=== PATIENT | female | born 1990 | race Caucasian/White ===

== ENCOUNTER → 2017-07-16 | Outpatient (CLI) | payer OTHER | LOC: HPND 08:56 | PROVIDERS: ATTEND Family Medicine | DX: Z36.3 Encounter for antenatal screening for malformations (principal) | CPT/HCPCS: 76805 ==

== ENCOUNTER → 2017-08-27 | Outpatient (CLI) | payer OTHER | LOC: HPND 07:54 | PROVIDERS: ATTEND Family Medicine | DX: O44.42 Low lying placenta NOS or without hemorrhage, second trimester (principal); Z36.2 Encounter for other antenatal screening follow-up | CPT/HCPCS: 76816 ==

== ENCOUNTER 2017-09-05 04:57 | Emergency (ER) | payer OTHER ==
--- NOTE | 2017-09-05 06:42 | PD ---
HPI Chief Complaint Nausea vomiting, back pain, leakage of fluid 6 hours Date Seen: Sep 05, 2017 Travel History International Travel<30 Days: No Contact w/Intl Traveler<30Days: No Known Affected Area: No History of Present Illness HPI 27-year-old female, 25 weeks and 6 days, presents with nausea/vomiting, lower back and lower abdominal pain, and leakage of fluid overnight. Patient states that she has been having lower back pain over the last couple of weeks and she did not have that in the previous . They have been doing back massages with no alleviation of the pain. The nausea/vomiting is new and occurred suddenly overnight. She has also felt some increased leakage of fluid over the night. While waiting in triage the patient's nausea/vomiting and pain have all resolved and she is sleeping comfortably at a 1-2 out of 10 pain. Leakage of fluid has been testing with amnio sure by nursing staff and is negative. She denies any pelvic pain or vaginal irritation, burning, or pain with urination. Weeks Gestation: 25 Para: 2 : 1 Miscarriage: 0 : 0 History Past Medical History Narrative Medical Chronic anemia Recent yeast infection/UTI, treatment completed History of pyelonephritis Low-lying placenta on ultrasound Medical History: Denies Significant Hx Obstetric History Obstetric History This Late care with first visit in second trimester, at 18 weeks gestation Low-lying placenta on ultrasound Iron deficiency anemia Previous 1, no complications Family History Family History: Negative Social History Alcohol Use: No Tobacco Use: No Substance Abuse: No Allergies-Medications (Allergen,Severity, Reaction): Coded Allergies: nickel (Verified Allergy, Unknown, 09/05/17) Home Meds Active Scripts Promethazine (Phenergan) 25 Mg Tablet, 25 MG PO Q6H Y for NAUSEA OR VOMITING, # 30 TAB 0 Refills Prov:John Manuel MD R2 09/05/17 Narrative Medication PNV Fe 325 Vit C 500 s/p Miconazole vaginal cream x 6 days and Niro 100mg BID x 7 days Review of Systems ROS Limitations: Clinical Condition General / Constitutional: No: Fever Eyes: No: Visual changes HENT: No: Lightheadedness Cardiovascular: No: Syncope Respiratory: No: Wheezing Genitourinary: No: Urgency, Frequency Musculoskeletal: No: Edema Skin: No Lesions Neurologic: No: Syncope Psychiatric: No: Depression Endocrine: No: Polyuria Physical Exam Exam Limitations: Clinical Condition GENERAL: No acute distress, sleeping comfortably at time of exam SKIN: Warm and dry. HEAD: Normocephalic. EYES: No scleral icterus. No injection or drainage. NECK: Supple, trachea midline. No JVD or lymphadenopathy. CARDIOVASCULAR: Regular rate and rhythm without murmurs, gallops, or rubs. RESPIRATORY: Breath sounds equal bilaterally. No accessory muscle use. GASTROINTESTINAL: Abdomen soft, non-tender, nondistended. Pain cannot be re- created on palpation MUSCULOSKELETAL: No cyanosis, or edema. BACK: Nontender without obvious deformity. No CVA tenderness. Pelvic: closed, thick, and floating, exam done by Narrative Data Data Vital Signs Reviewed: Yes Orders Orders Complete Blood Count With Diff (09/05/17 06:39) Comprehensive Metabolic Panel (09/05/17 06:39) Urinalysis - C+S If Indicated (09/05/17 06:39) Us Kidney/Renal/Bladder (09/05/17 ) MDM Medical Record Reviewed: Yes Interpretation(s) Pain likely from hydronephrosis vs. biliary colic vs. musculoskeletal R/O labor Tracing category 1, reactive, no decelerations No contractions on monitor Amniosure negative Exam: C/th/f R/O nephrolithiasis - See U/S below - Regardless should pass spontaneously - May add Tamsulosin (Category B) if diagnosed and necessary R/O pyelo CBC: WNL UA: negative leuk est, negative nitrites CMP: LFTS N renal ultrasound: bilateral hydronephrosis, gallstones visualized Proteinurea - BP WNL -LFTS N - f/u in office Narrative Course / MDM Pt Cat 1 tracing Pt given Fentanyl IV for pain Plan D/C with phenergan PRN for N/V D/C with rec of tylenol for pain D/C with f/u with PCP (myself) in 1 week Will do gall bladder ultrasound [id number] to monitor for cholecystitis/ choledocholithiasis Diagnosis Diagnosis: Primary Impression: 25 weeks gestation of Additional Impression: Cholelithiases Disposition: 01 DISCHARGE HOME Condition: Good Scripts Promethazine (Phenergan) 25 Mg Tablet 25 MG PO Q6H Y for NAUSEA OR VOMITING, #30 TAB 0 Refills Prov: John Manuel MD R2 09/05/17 Referrals: Liz Aden MD R2 Patient Instructions: Abdominal Pain in (ED), General Instructions, Narcotic given in the ED, Nausea and Vomiting in (ED) Liz Aden MD R2 Sep 05, 2017 06:42
[2017-09-05 07:05] LABS: AUTOMATED NEUTROPHIL # 12.4 TH/MM3 (1.8-7.7); BASOPHIL # 0.1 TH/MM3 (0-0.2); BASOPHIL % 0.4 % (0.0-2.0); HEMATOCRIT 32.3 % (35.0-46.0); HEMOGLOBIN 11.1 GM/DL (11.6-15.3); LYMPH % 8.3 % (9.0-44.0); LYMPHOCYTE # 1.2 TH/MM3 (1.0-4.8); MEAN CELL VOLUME 83.8 FL (80.0-100.0); MEAN CORPUSCULAR HEMOGLOBIN 28.7 PG (27.0-34.0); MEAN CORPUSCULAR HGB CONC 34.3 % (32.0-36.0); MEAN PLATELET VOLUME 7.5 FL (7.0-11.0); MONO % 2.2 % (0.0-8.0); MONOCYTE # 0.3 TH/MM3 (0-0.9); NEUT % 89.1 % (16.0-70.0); PLATELET COUNT 278 TH/MM3 (150-450); RED BLOOD COUNT 3.85 MIL/MM3 (4.00-5.30); RED CELL DISTRIBUTION WIDTH 13.4 % (11.6-17.2)
[2017-09-05 07:17] LABS: AMORPHOUS SEDIMENT, URINE FEW; BACTERIA, URINE OCC /hpf; BILIRUBIN, URINE NEG (NEG); BLOOD, URINE NEG (NEG); GLUCOSE,URINE TRACE mg/dL (NEG); KETONE, URINE NEG (NEG); MUCUS URINE MOD /lpf (OCC); NITRITE,URINE NEG (NEG); SQUAMOUS EPITHELIAL CELL URINE 3 /hpf (0-5); URINE COLOR YELLOW (YELLW/STRAW); URINE LEUKOCYTE ESTERASE MOD (NEG)
[2017-09-05 07:27] LABS: ALBUMIN 2.8 GM/DL (3.4-5.0); AST (GOT) 15 U/L (15-37); BICARBONATE 21.6 MEQ/L (21.0-32.0); BLOOD UREA NITROGEN 13 MG/DL (7-18); CALCIUM 8.3 MG/DL (8.5-10.1); CHLORIDE 106 MEQ/L (98-107); CREATININE 0.43 MG/DL (0.50-1.00); GLOMERULAR FILTRATION RATE 177 ML/MIN (>89); GLUCOSE,RANDOM 104 MG/DL (74-106); SODIUM (NA) 139 MEQ/L (136-145)
[2017-09-05 07:28] LABS: ALT (GPT) 22 U/L (10-53)
[2017-09-05 07:30] LABS: ALKALINE PHOSPHATASE 59 U/L (45-117); TOTAL BILIRUBIN ADULT 0.2 MG/DL (0.2-1.0); TOTAL PROTEIN 6.9 GM/DL (6.4-8.2)
[2017-09-05] MEDS ORDERED: PROM25TA10 PO (09:28)
--- NOTE | 2017-09-05 09:30 | RADRPT ---
EXAM DATE/TIME: 09/05/2017 08:37 [place] COMPARISON: No previous studies available for comparison. INDICATIONS : Flank pain. MEDICAL HISTORY : Flank pain. SURGICAL HISTORY : None. ENCOUNTER: Initial ACUITY: 1 day PAIN SCORE: 3/10 LOCATION: Bilateral flank MEASUREMENTS: RIGHT KIDNEY: 13.1 x 5.9 x 5.2 cm LEFT KIDNEY: 11.4 x 4.8 x 4.0 cm FINDINGS: RIGHT KIDNEY: Normal in size, shape and echogenicity. There is mild dilatation of renal pelvis with no solid mass o r calculi. LEFT KIDNEY: Normal in size, shape and echogenicity. There is mild dilatation renal pelvis with no solid mass or c alculi. BLADDER: Within normal limits given the degree of distension. Multiple gallstones were incidentally noted. CONCLUSION: 1. Mild dilatation of both renal pelvises which may represent mild pyelocaliectasis in this p atient. 2. Cholelithiasis. Leonard Liang MD on September 05, 2017 at 9:20 Board Certified Radiologist. This report was verified electronically.
== END 2017-09-05 10:09 | disposition home or self-care (01) ==
LOC: HOBED 04:57
DX: O99.612 Diseases of the digestive system complicating pregnancy, second trimester (principal); K80.20 Calculus of gallbladder without cholecystitis without obstruction; R82.99 Other abnormal findings in urine; Z3A.25 25 weeks gestation of pregnancy
CPT/HCPCS: 76775; 80053; 81001; 84112; 85025; 87086; 96374; 99284; J3010

== ENCOUNTER 2017-12-15 12:45 | Inpatient (IN) ==
[2017-12-15] MEDS ORDERED: Naloxone Inj 0.4 MG/ML Vial IV.PUSH PRN ×2 (13:32→19:32)
[2017-12-15] MEDS ORDERED: Oxytocin 30 Units/500ml Premix 30 UNITS/500 ML BAG IV.SIG ONE (13:32)
[2017-12-15] MEDS ORDERED: Sodium Chlor 0.9% Inj 500 ML IV.SIG PRN (13:32)
[2017-12-15] MEDS ORDERED: Sod Chloride 0.9% Inj 1,000 ML IV.CONT PRN (13:32)
[2017-12-15] MEDS ORDERED: fentaNYL Citrate Inj 100 MCG/2 ML Ampul IV.PUSH PRN ×2 (13:32)
[2017-12-15] MEDS ORDERED: Citric Acid/Sodium Citrate Liq 30 ML UDC PO SCH (13:45)
--- NOTE | 2017-12-15 13:51 | ED ---
History of Present Illness Primary Care Physician: No Primary Care Physician PCP Dr. Aden, PGY-3, FM residency Chief Complaint: cxns History of Present Illness: , at 40 weeks 2 days gestation, presents for contractions since 7 AM this morning. Contractions have been regular and every 5 minutes. She has had some small amounts of leakage of fluid, but no gushes of fluid. She has had some bloody streaks in her discharge. No large amounts of vaginal bleeding. Positive movement. 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 This includes certification that hospital inpatient services are reasonable and necessary and in the case of services not specified as inpatient-only under 42 CFR 419.22(n), that they are appropriately provided as inpatient services in accordance to with the 2-midnight benchmark under 43 CFR 412.3(e) Estimated Total Length of Stay (Days): 3 Plans for Post Hospital Care: Home Review of Systems All other systems reviewed negative except as stated in HPI PMFSH - History History Provided By: Patient - Medical / Surgical Hx Neg / Unobtainable Medical Problems Denied: Yes - Tobacco History Second Hand Smoke Exposure: No Tobacco Use In Past 30 Days: No Smoking Status: Never smoker - Alcohol History How Often Do You Have a Drink Containing Alcohol: Never - Substance Use History Substance History: No History of Abuse - Travel History History of Recent Travel: No Recent Travel in the [place] Within the Last 8 Weeks: No Recent Travel Out of the Country Within the Last 8 Weeks: No Medications and Allergies Allergies Allergy/AdvReac Type Severity Reaction Status Date / Time nickel Allergy Unknown chest rash Verified 12/15/17 13:21 Home Medications Medication Instructions Recorded Confirmed Type ferrous sulfate [iron] 325 mg PO DAILY 12/15/17 12/15/17 History [id number] acid 1 tab PO 12/15/17 History [PreNata] Active Medications: Active Medications Citric Acid/Sodium Citrate (Sodium Citrate/Citric Acid Liq) 30 ml PO [employer] [facility] Stop: 12/19/17 13:44 Fentanyl Citrate (Fentanyl Inj) 50 mcg IV.PUSH Q1H PRN PRN Reason: Pain Scale 3 - 5 Fentanyl Citrate (Fentanyl Inj) 100 mcg IV.PUSH Q1H PRN PRN Reason: PAIN SCALE 6 TO 10 Lactated Ringer's (Lr 1000 Ml Inj) 1,000 mls @ 125 mls/hr IV.CONT .Q8H WU Lactated Ringer's (Lr 1000 Ml Inj) 1,000 mls @ 3,000 mls/hr IV.SIG UNSCH PRN PRN Reason: compromise or epidural Sodium Chloride (Ns Inj) 500 mls @ 1,000 mls/hr IV.SIG UNSCH PRN PRN Reason: SEE LABEL COMMENTS Sodium Chloride (Ns Inj) 1,000 mls @ 100 mls/hr IV.CONT .Q10H PRN PRN Reason: SEE LABEL COMMENTS Oxytocin (Pitocin 30 Units/Ns 500 Ml Premix) 30 units in 500 mls @ 999 mls/hr IV.SIG BOLUS ONE Stop: 12/15/17 14:02 Lidocaine HCl (Xylocaine 1% Inj) 0.1 ml I-DERMAL PRN PRN PRN Reason: For IV start Stop: 12/18/17 13:31 Lidocaine HCl (Xylocaine 1% Inj) 10 ml INFILTRATN PRN PRN PRN Reason: For episiotomy repair Stop: 12/17/17 13:31 Mineral Oil (Muri-Lube Oil) 10 ml TOPICAL PRN PRN PRN Reason: PRN perineal massage Naloxone HCl (Narcan Inj) 0.1 mg IV.PUSH Q2M PRN PRN Reason: for opiate reversal Ondansetron HCl (Zofran Inj) 4 mg IV.PUSH Q6H PRN PRN Reason: NAUSEA OR VOMITING Exam Vital signs: Vital Signs 12/15/17 13:02 Temperature 97.7 F Pulse Rate 86 Respiratory Rate 18 Blood Pressure 108/58 L Intake & Output 12/14/17 12/15/17 12/15/17 18:59 06:59 18:59 Weight 74.389 kg Narrative: heart tracing: Category 1 tracing, positive accelerations, no decelerations, baseline 140 Contractions q. 2 minutes, regular Sterile vaginal exam: 3-4 cm/90/-2, bulging Amniosure negative GENERAL: Well-nourished, well-developed patient. SKIN: Warm and dry. HEAD: Normocephalic and atraumatic. EYES: No scleral icterus. No injection or drainage. ENT: Mucous membranes pink. Airway patent. NECK: Supple, trachea midline. CARDIOVASCULAR: Regular rate and rhythm without murmurs, gallops, or rubs. RESPIRATORY: Breath sounds equal bilaterally. No accessory muscle use. BREASTS: Deferred ABDOMEN/GI: Abdomen soft, non-tender, bowel sounds present, no rebound, no guarding Gravid GENITOURINARY: as above EXTREMITIES: No cyanosis or edema. BACK: Nontender without obvious deformity. NEUROLOGICAL: Awake and alert. Motor and sensory grossly within normal limits. Five out of 5 muscle strength in all muscle groups. Normal speech. Results - Labs CBC & Chem 7: 12/15/17 13:44 Assessment and Plan - Diagnosis (1) Code(s): Z34.90 - Encounter for supervision of normal , unspecified, unspecified trimester Status: Acute Qualifiers: Weeks of gestation: 40 weeks Qualified Code(s): Z3A.40 - 40 weeks gestation of Plan: , 40 weeks 2 days gestation, presents in labor. -Admit for epidural -We will reexamine cervix following epidural, amniosure negative -Continue regular labor care -GBS negative -Category 1 tracing - Attending Attestation I personally saw and evaluated patient and participate in all mendoza decision making. Admit for labor at term. [facility] Discharge Plan - Discharge Order Discharge Orders: Discharge Order (Routine); Ordered 12/17/17 Ordered By: Mikie Davis - Physicians Team Primary Care Provider: Primary Care Jermaine,Elodia Attending Provider: Jessi Gomez
[2017-12-15 14:04] LABS: Baso % (Auto) 0.5 % (0.0-2.0); Eos # (Auto) 0.1 th/mm3 (0.0-0.4); Eos % (Auto) 0.5 % (0.0-4.0); Hematocrit 38.5 % (35.0-46.0); Hemoglobin 13.3 gm/dL (11.6-15.3); Lymph # (Auto) 1.8 th/mm3 (1.0-4.8); Lymph % (Auto) 16.9 % (9.0-44.0); Mean Corpuscular HGB Conc 34.5 % (32.0-36.0); Mean Corpuscular Hemoglobin 28.7 pg (27.0-34.0); Mean Platelet Volume 7.3 fL (7.0-11.0); Mono # (Auto) 0.6 th/mm3 (0.0-0.9); Mono % (Auto) 6.2 % (0.0-8.0); Neut % (Auto) 75.9 % (16.0-70.0); Platelet Count 253 th/mm3 (150-450); Red Blood Count 4.63 mil/mm3 (4.00-5.30); Red Cell Distribution Width 14.2 % (11.6-17.2); White Blood Count 10.5 th/mm3 (4.0-11.0)
[2017-12-15] MEDS ORDERED: fentaNYL 2MCG-Bupiv 0.125% Epi 150 ML EPIDURAL ONE (14:16)
--- NOTE | 2017-12-15 14:19 | P.HPOB ---
, at 40 weeks 2 days gestation, presents for contractions since 7 AM this morning. Contractions have been regular and every 5 minutes. She has had some small amounts of leakage of fluid, but no gushes of fluid. She has had some bloody streaks in her discharge. No large amounts of vaginal bleeding. Positive movement. 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 This includes certification that hospital inpatient services are reasonable and necessary and in the case of services not specified as inpatient-only under 42 CFR 419.22(n), that they are appropriately provided as inpatient services in accordance to with the 2-midnight benchmark under 43 CFR 412.3(e) Estimated Total Length of Stay (Days): 3 Plans for Post Hospital Care: Home Review of Systems All other systems reviewed negative except as stated in HPI PMFSH - History History Provided By: Patient - Medical / Surgical Hx Neg / Unobtainable Medical Problems Denied: Yes - Tobacco History Second Hand Smoke Exposure: No Tobacco Use In Past 30 Days: No Smoking Status: Never smoker - Alcohol History How Often Do You Have a Drink Containing Alcohol: Never - Substance Use History Substance History: No History of Abuse - Travel History History of Recent Travel: No Recent Travel in the [place] Within the Last 8 Weeks: No Recent Travel Out of the Country Within the Last 8 Weeks: No Medications and Allergies Active Medications: Active Medications Citric Acid/Sodium Citrate (Sodium Citrate/Citric Acid Liq) 30 ml PO [employer] [facility] Stop: 12/19/17 13:44 Fentanyl Citrate (Fentanyl Inj) 50 mcg IV.PUSH Q1H PRN PRN Reason: Pain Scale 3 - 5 Fentanyl Citrate (Fentanyl Inj) 100 mcg IV.PUSH Q1H PRN PRN Reason: PAIN SCALE 6 TO 10 Lactated Ringer's (Lr 1000 Ml Inj) 1,000 mls @ 125 mls/hr IV.CONT .Q8H [facility] Lactated Ringer's (Lr 1000 Ml Inj) 1,000 mls @ 3,000 mls/hr IV.SIG UNSCH PRN PRN Reason: compromise or epidural Sodium Chloride (Ns Inj) 500 mls @ 1,000 mls/hr IV.SIG UNSCH PRN PRN Reason: SEE LABEL COMMENTS Sodium Chloride (Ns Inj) 1,000 mls @ 100 mls/hr IV.CONT .Q10H PRN PRN Reason: SEE LABEL COMMENTS Oxytocin (Pitocin 30 Units/Ns 500 Ml Premix) 30 units in 500 mls @ 999 mls/hr IV.SIG BOLUS ONE Stop: 12/15/17 14:02 Lidocaine HCl (Xylocaine 1% Inj) 0.1 ml I-DERMAL PRN PRN PRN Reason: For IV start Stop: 12/18/17 13:31 Lidocaine HCl (Xylocaine 1% Inj) 10 ml INFILTRATN PRN PRN PRN Reason: For episiotomy repair Stop: 12/17/17 13:31 Mineral Oil (Muri-Lube Oil) 10 ml TOPICAL PRN PRN PRN Reason: PRN perineal massage Naloxone HCl (Narcan Inj) 0.1 mg IV.PUSH Q2M PRN PRN Reason: for opiate reversal Ondansetron HCl (Zofran Inj) 4 mg IV.PUSH Q6H PRN PRN Reason: NAUSEA OR VOMITING Allergies Allergy/AdvReac Type Severity Reaction Status Date / Time nickel Allergy Unknown chest rash Verified 12/15/17 13:21 Home Medications Medication Instructions Recorded Confirmed Type ferrous sulfate [iron] 325 mg PO DAILY 12/15/17 12/15/17 History [id number] acid 1 tab PO 12/15/17 History [PreNata] Exam Vital signs: Vital Signs 12/15/17 13:02 Temperature 97.7 F Pulse Rate 86 Respiratory Rate 18 Blood Pressure 108/58 L Intake & Output 12/14/17 12/15/17 12/15/17 18:59 06:59 18:59 Weight 74.389 kg Narrative: GENERAL: Well-nourished, well-developed patient. SKIN: Warm and dry. HEAD: Normocephalic and atraumatic. EYES: No scleral icterus. No injection or drainage. ENT: No nasal drainage noted. Mucous membranes pink. Airway patent. NECK: Supple, trachea midline. No JVD. CARDIOVASCULAR: Regular rate and rhythm without murmurs, gallops, or rubs. RESPIRATORY: Breath sounds equal bilaterally. No accessory muscle use. ABDOMEN/GI: Abdomen soft, non-tender, bowel sounds present, no rebound, no guarding heart tracing: Category 1 tracing, positive accelerations, no decelerations, baseline 140 Contractions q. 2 minutes, regular Sterile vaginal exam: 3-4 cm/90/-2, bulging Amniosure negative EXTREMITIES: No cyanosis or edema. BACK: Nontender without obvious deformity. No CVA tenderness. NEUROLOGICAL: Awake and alert. Motor and sensory grossly within normal limits. Five out of 5 muscle strength in all muscle groups. Normal speech. Assessment and Plan - Diagnosis (1) Code(s): Z34.90 - Encounter for supervision of normal , unspecified, unspecified trimester Status: Acute Plan: , 40 weeks 2 days gestation, presents in labor. -Admit for epidural -We will reexamine cervix following epidural, amniosure negative -Continue regular labor care -GBS negative -Category 1 tracing
[2017-12-15 14:32] LABS: Bilirubin,Urine Negative (Negative); Clarity,Urine Clear (Clear); Color,Urine Yellow (Yellw/Straw); Glucose,Urine (UA) Negative (Negative); Leukocyte Esterase,Urine Negative (Negative); Mucus,Urine Few /lpf (Occasional); Nitrite,Urine Negative (Negative); Specific Gravity,Urine 1.015 (1.002-1.035); Squamous Epithelial Cell,Urine 2 /hpf (0-5)
[2017-12-15] MEDS ORDERED: fentaNYL Citrate Inj 100 MCG/2 ML Ampul EPIDURAL ONE (15:19)
[2017-12-15] MEDS ORDERED: fentaNYL 2MCG-Bupiv 0.125% Epi 150 ML EPIDURAL PRN (15:19)
--- NOTE | 2017-12-15 15:32 | P.PN ---
Subjective Interval history: OBHG Attending The patient was seen and counseled regarding labor and the goal of a healthy and healthy mother. We discussed the goal of a vaginal delivery. We discussed the risks and medical indications of a delivery. The patient is in agreement with if clinically indicated. FHR reassuring. Patient comfortable with epidural. Physical Exam Vital signs: Vital Signs 12/15/17 13:02 12/15/17 14:00 12/15/17 14:30 Temperature 97.7 F Pulse Rate 86 Respiratory Rate 18 19 18 Blood Pressure 108/58 L 12/15/17 14:40 12/15/17 15:02 12/15/17 15:05 Temperature Pulse Rate 87 73 74 Respiratory Rate 18 Blood Pressure 117/77 114/67 104/68 12/15/17 15:08 12/15/17 15:10 12/15/17 15:25 Temperature Pulse Rate 76 Respiratory Rate 17 18 Blood Pressure 107/65 Intake & Output 12/14/17 12/15/17 12/15/17 18:59 06:59 18:59 Weight 74.389 kg Results - Labs CBC & Chem 7: 12/15/17 13:44 Laboratory Results - last 24 hr 12/15/17 12/15/17 12/15/17 13:05 13:44 13:44 WBC 10.5 RBC 4.63 Hgb 13.3 Hct 38.5 MCV 83.0 MCH 28.7 MCHC 34.5 RDW 14.2 Plt Count 253 MPV 7.3 Neut % (Auto) 75.9 H Lymph % (Auto) 16.9 [place] % (Auto) 6.2 Eos % (Auto) 0.5 Baso % (Auto) 0.5 Neut # (Auto) 8.0 H Lymph # (Auto) 1.8 [place] # (Auto) 0.6 Eos # (Auto) 0.1 Baso # (Auto) 0.0 WBC Differential . Differential Comment Auto diff final Urine Color Yellow Urine Clarity Clear Urine pH 7.0 Ur Specific [place] 1.015 Urine Protein Negative Urine Glucose (UA) Negative Urine Ketones Negative Urine Occult Blood Small H Urine Nitrate Negative Urine Bilirubin Negative Urine Urobilinogen Less than 2 Ur Leukocyte Esterase Negative Urine RBC 1 Urine WBC 1 Ur Squamous Epith Cells 2 Urine Mucus Few H Micro UA Comment Culture not ind Urine Culture Comments Culture not ind Blood Type O Positive Blood Type Recheck Required
[2017-12-15] MEDS ORDERED: Diphtheria/Tetanus/Pertussis Vaccine Inj 0.5 ML Syringe IM ONE (16:00)
[2017-12-15] MEDS ORDERED: Measles/Mumps/Rubella Vaccine Inj 0.5 ML Vial SQ ONE (16:00)
[2017-12-15] MEDS ORDERED: miSOPROStol 200 MCG Tablet ONE (19:02)
--- NOTE | 2017-12-15 19:12 | P.PN ---
Subjective Interval history: Came to patient's room to personally assess vaginal exam. heart tones were reassuring. SROM of meconium fluid during SVE. SVE /-2. Following SROM patient had some decreased heart tones as the fetus was repositioning however return to baseline with moderate long-term variability, good accelerations, and no further decelerations of note. Upon arrival of the resident patient commence spontaneous maternal expulsive efforts with atraumatic delivery of the head in the OP presentation. head was rotated and anterior shoulder delivered spontaneously and atraumatically, followed by spontaneous and atraumatic delivery of the remainder of the . The was placed on the maternal abdomen and became vigorous with stimulation. The cord was doubly clamped and cut after 45 second delay. Cord blood was obtained for the nursery and the placenta delivered spontaneously. The placenta appeared to be intact. A small laceration was noted of the vagina and perineum which was repaired in the typical fashion by the resident. I was present for the entire procedure. Mother and baby are both doing well. Physical Exam Vital signs: Vital Signs 12/15/17 13:02 12/15/17 14:00 12/15/17 14:30 Temperature 97.7 F Pulse Rate 86 Respiratory Rate 18 19 18 Blood Pressure 108/58 L 12/15/17 14:40 12/15/17 15:02 12/15/17 15:05 Temperature Pulse Rate 87 73 74 Respiratory Rate 18 Blood Pressure 117/77 114/67 104/68 12/15/17 15:08 12/15/17 15:10 12/15/17 15:25 Temperature Pulse Rate 76 74 Respiratory Rate 17 18 Blood Pressure 107/65 12/15/17 15:30 12/15/17 15:35 12/15/17 15:40 Temperature Pulse Rate 78 75 79 Respiratory Rate Blood Pressure 109/69 12/15/17 15:50 12/15/17 15:55 12/15/17 16:01 Temperature Pulse Rate 73 75 81 Respiratory Rate 18 Blood Pressure 122/74 123/67 12/15/17 16:05 12/15/17 16:10 12/15/17 16:15 Temperature Pulse Rate 79 75 80 Respiratory Rate Blood Pressure 12/15/17 16:20 12/15/17 16:35 12/15/17 17:00 Temperature 98.2 F Pulse Rate 80 83 77 Respiratory Rate 17 Blood Pressure 110/67 108/56 L 110/67 12/15/17 17:30 12/15/17 17:45 12/15/17 18:01 Temperature Pulse Rate 91 H 81 94 H Respiratory Rate 18 Blood Pressure 96/59 L 106/73 102/77 Intake & Output 12/15/17 12/15/17 12/16/17 06:59 18:59 06:59 Weight 74.389 kg Results - Labs CBC & Chem 7: 12/15/17 13:44 Laboratory Results - last 24 hr 12/15/17 12/15/17 12/15/17 13:05 13:44 13:44 WBC 10.5 RBC 4.63 Hgb 13.3 Hct 38.5 MCV 83.0 MCH 28.7 MCHC 34.5 RDW 14.2 Plt Count 253 MPV 7.3 Neut % (Auto) 75.9 H Lymph % (Auto) 16.9 [place] % (Auto) 6.2 Eos % (Auto) 0.5 Baso % (Auto) 0.5 Neut # (Auto) 8.0 H Lymph # (Auto) 1.8 [place] # (Auto) 0.6 Eos # (Auto) 0.1 Baso # (Auto) 0.0 WBC Differential . Differential Comment Auto diff final Urine Color Yellow Urine Clarity Clear Urine pH 7.0 Ur Specific [place] 1.015 Urine Protein Negative Urine Glucose (UA) Negative Urine Ketones Negative Urine Occult Blood Small H Urine Nitrate Negative Urine Bilirubin Negative Urine Urobilinogen Less than 2 Ur Leukocyte Esterase Negative Urine RBC 1 Urine WBC 1 Ur Squamous Epith Cells 2 Urine Mucus Few H Micro UA Comment Culture not ind Urine Culture Comments Culture not ind Blood Type O Positive Blood Type Recheck Required
[2017-12-15] MEDS ORDERED: Bisacodyl 10 MG Supp RECTAL PRN (19:32)
[2017-12-15] MEDS ORDERED: Benzocaine 20% Top Spray 60 ML Can TOPICAL PRN (19:32)
[2017-12-15] MEDS ORDERED: Witch Hazel 50%/Glyderin 12.5% 40 Pad Jar RECTAL PRN (19:32)
[2017-12-15] MEDS ORDERED: Acetaminophen 325 MG Tablet PO PRN (19:32)
[2017-12-15] MEDS ORDERED: Zolpidem Tartrate 5 MG Tablet PO PRN (19:32)
--- NOTE | 2017-12-15 19:35 | P.OBDELI ---
Weeks Gestation: 40 Patient Started Active Labor: Yes Active Labor Start Date: 12/15/17 Active Labor Start Time: 07:00 Medical Induction of Labor: No Artificial Rupture of Membrane: No Anesthesia: Epidural Episiotomy: none Vaginal Delivery: Normal Presentation: Occiput posterior Nuchal Cord: x1 (body cord) Delayed Cord Clamping (45 sec): Yes Placenta: Spontaneous delivery, Intact Laceration: 2 deg Repair: Chromic running (3.0 chromic running) Infant: Female
[2017-12-15] MEDS ORDERED: Oxytocin 30 Units/500ml Premix 30 UNITS/500 ML BAG IV.CONT SCH (19:45)
[2017-12-15 20:02] LABS: Amphetamine Urine With Conf Neg (Neg); Benzodiazepine Urine With Conf Neg (Neg)
[2017-12-15] MEDS ORDERED: Senna/Docusate Sodium 8.6/50 MG Tablet PO SCH (21:00)
--- NOTE | 2017-12-16 07:59 | P.PNOB ---
Subjective Post day: 1 Interval history: Pt seen and examined bedside this AM. Eating and drinking without difficulty. Ambulating without difficulty. No abnormal vaginal bleeding, "period amount" per patient. Denies any CP/SOB/dizzyness. Objective Vital Signs/I&O: Vital Signs 12/15/17 13:02 12/15/17 14:00 12/15/17 14:30 Temperature 97.7 F Pulse Rate 86 Respiratory Rate 18 19 18 Blood Pressure 108/58 L 12/15/17 14:40 12/15/17 15:02 12/15/17 15:05 Temperature Pulse Rate 87 73 74 Respiratory Rate 18 Blood Pressure 117/77 114/67 104/68 12/15/17 15:08 12/15/17 15:10 12/15/17 15:25 Temperature Pulse Rate 76 74 Respiratory Rate 17 18 Blood Pressure 107/65 12/15/17 15:30 12/15/17 15:35 12/15/17 15:40 Temperature Pulse Rate 78 75 79 Respiratory Rate Blood Pressure 109/69 12/15/17 15:50 12/15/17 15:55 12/15/17 16:01 Temperature Pulse Rate 73 75 81 Respiratory Rate 18 Blood Pressure 122/74 123/67 12/15/17 16:05 12/15/17 16:10 12/15/17 16:15 Temperature Pulse Rate 79 75 80 Respiratory Rate Blood Pressure 12/15/17 16:20 12/15/17 16:35 12/15/17 17:00 Temperature 98.2 F Pulse Rate 80 83 77 Respiratory Rate 17 Blood Pressure 110/67 108/56 L 110/67 12/15/17 17:30 12/15/17 17:45 12/15/17 17:55 Temperature Pulse Rate 91 H 81 79 Respiratory Rate 18 Blood Pressure 96/59 L 106/73 12/15/17 18:01 12/15/17 19:23 12/15/17 19:31 Temperature Pulse Rate 94 H 100 H Respiratory Rate Blood Pressure 102/77 138/123 H 123/93 H 12/15/17 19:35 12/15/17 19:48 12/15/17 20:05 Temperature 98.0 F Pulse Rate 92 H 91 H Respiratory Rate 18 16 18 Blood Pressure 114/55 L 129/64 12/15/17 20:16 12/15/17 20:27 12/15/17 20:31 Temperature Pulse Rate 81 89 Respiratory Rate 18 Blood Pressure 117/61 119/59 L 12/15/17 21:00 12/15/17 21:15 Temperature 98.8 F Pulse Rate 85 72 Respiratory Rate 18 18 Blood Pressure 109/61 120/63 Intake & Output 12/15/17 12/16/17 12/16/17 18:59 06:59 18:59 Weight 74.389 kg Result Diagrams: 12/15/17 13:44 Objective Remarks: GENERAL: Well-nourished, well-developed patient. CARDIOVASCULAR: Regular rate and rhythm without murmurs, gallops, or rubs. RESPIRATORY: Breath sounds equal bilaterally. No accessory muscle use. ABDOMEN/GI: Abdomen soft, non-tender. Fundus: Firm, non-tender at umbilicus. GENITOURINARY: Light to moderate bleeding. EXTREMITIES: No cyanosis or edema, non-tender, without signs of DVT. Medications and IVs: Active Medications Acetaminophen (Tylenol) 650 mg PO Q4H PRN PRN Reason: PAIN SCALE 1 TO 2 Al Hydroxide/Mg Hydroxide (Milk Of Magnesia Liq) 30 ml PO Q12H PRN PRN Reason: Mild Constipation Benzocaine (Americaine 20% Top [place]) 1 spray TOPICAL Q4H PRN PRN Reason: For Perineum Discomfort Last Admin: 12/15/17 21:55 Dose: 1 spray Bisacodyl (Dulcolax Supp) 10 mg RECTAL DAILY PRN PRN Reason: SEVERE CONSITIPATION Citric Acid/Sodium Citrate (Sodium Citrate/Citric Acid Liq) 30 ml PO [employer] [facility] Stop: 12/19/17 13:44 Ephedrine Sulfate (Ephedrine/Ns Syringe) 10 mg IV.PUSH UNSCH PRN PRN Reason: SEE LABEL COMMENTS Stop: 12/16/17 15:19 Fentanyl Citrate (Fentanyl Inj) 50 mcg IV.PUSH Q1H PRN PRN Reason: Pain Scale 3 - 5 Fentanyl Citrate (Fentanyl Inj) 100 mcg IV.PUSH Q1H PRN PRN Reason: PAIN SCALE 6 TO 10 Last Admin: 12/15/17 14:07 Dose: 100 mcg Lactated Ringer's (Lr 1000 Ml Inj) 1,000 mls @ 125 mls/hr IV.CONT .Q8H [facility] Last Admin: 12/15/17 13:48 Dose: 125 mls/hr Lactated Ringer's (Lr 1000 Ml Inj) 1,000 mls @ 3,000 mls/hr IV.SIG UNSCH PRN PRN Reason: compromise or epidural Last Admin: 12/15/17 15:10 Dose: 3,000 mls/hr Sodium Chloride (Ns Inj) 500 mls @ 1,000 mls/hr IV.SIG UNSCH PRN PRN Reason: SEE LABEL COMMENTS Sodium Chloride (Ns Inj) 1,000 mls @ 100 mls/hr IV.CONT .Q10H PRN PRN Reason: SEE LABEL COMMENTS Fentanyl/Bupivacaine/Sodium Chlor (Fentanyl 2 Mcg-Bupiv 0.125% Epi) 150 mls @ 11 mls/hr EPIDURAL PRN PRN PRN Reason: for Labor Pain Last Admin: 12/15/17 15:31 Dose: 11 mls/hr Ibuprofen (Motrin) 800 mg PO Q8H PRN PRN Reason: For cramping Last Admin: 12/16/17 01:47 Dose: 800 mg Lactulose (Lactulose Liq) 30 ml PO DAILY PRN PRN Reason: SEVERE CONSITIPATION Lidocaine HCl (Xylocaine 1% Inj) 0.1 ml I-DERMAL PRN PRN PRN Reason: For IV start Stop: 12/18/17 13:31 Lidocaine HCl (Xylocaine 1% Inj) 10 ml INFILTRATN PRN PRN PRN Reason: For episiotomy repair Stop: 12/17/17 13:31 Mineral Oil (Muri-Lube Oil) 10 ml TOPICAL PRN PRN PRN Reason: PRN perineal massage Miscellaneous Information (Misc Information) 1 each OTHER UNSCH PRN PRN Reason: SEE LABEL COMMENTS Stop: 12/16/17 15:19 Miscellaneous Information (Misc Information) 1 each OTHER UNSCH PRN PRN Reason: SEE LABEL COMMENTS Stop: 12/16/17 15:19 Naloxone HCl (Narcan Inj) 0.1 mg IV.PUSH Q2M PRN PRN Reason: for opiate reversal Naloxone HCl (Narcan Inj) 0.1 mg IV.PUSH Q2M PRN PRN Reason: for opiate reversal Ondansetron HCl (Zofran Inj) 4 mg IV.PUSH Q6H PRN PRN Reason: NAUSEA OR VOMITING Last Admin: 12/15/17 18:24 Dose: 4 mg Ondansetron HCl (Zofran Odt) 4 mg PO Q6H PRN PRN Reason: NAUSEA OR VOMITING Senna/Docusate Sodium (Manda-Colace) 1 tab PO BID WU Last Admin: 12/15/17 21:55 Dose: 1 tab Sennosides (Senokot) 17.2 mg PO Q12H PRN PRN Reason: Moderate Constipation Sodium Chloride (Ns Flush) 2 ml IV.FLUSH BID WU Sodium Chloride (Ns Flush) 2 ml IV.FLUSH PRN PRN PRN Reason: FLUSH AFTER USING IV ACCESS Witch Suad/Glycerin (Tucks Pads) 1 applicatio RECTAL QID PRN PRN Reason: HEMORRHOIDS Last Admin: 12/15/17 21:55 Dose: 1 applicatio Zolpidem Tartrate (Ambien) 5 mg PO HS PRN PRN Reason: SLEEP Assessment and Plan - Diagnosis (1) Code(s): Z34.90 - Encounter for supervision of normal , unspecified, unspecified trimester Status: Acute Plan: , 40 weeks 2 days gestation, presents in labor. -Continue regular PPM care -Ambulate as tolerated - Pain well controlled on current medications - Does not need rhogam - CBC WNL - Anticipate d/c when baby is D/C'd, likely tomorrow depending on phototherapy - Plan delivered at [id number] days gestation, without complications. Discharge Planning: Anticipate d/c tomorrow pending baby d/c - Attending Attestation I personally saw and evaluated patient and participate in all [place] decision making. Continue routine care. Anticipate discharge home tomorrow. SMS (1) Qualifiers: Weeks of gestation: 40 weeks Qualified Code(s): Z3A.40 - 40 weeks gestation of
--- NOTE | 2017-12-17 07:31 | P.PNOB ---
Subjective Post day: 2 Interval history: Patient seen and examined bedside this morning. Patient is eating and drinking without difficulty. Patient is ambulating without difficulty. She is voiding normally. No abnormal amounts of vaginal bleeding. No chest pain/shortness of breath/dizziness. Objective Vital Signs/I&O: Vital Signs 12/16/17 08:00 12/16/17 20:00 Temperature 98.1 F 98.4 F Pulse Rate 73 67 Respiratory Rate 16 18 Blood Pressure 104/63 119/67 Result Diagrams: 12/15/17 13:44 Objective Remarks: GENERAL: Well-nourished, well-developed patient. CARDIOVASCULAR: Regular rate and rhythm without murmurs, gallops, or rubs. RESPIRATORY: Breath sounds equal bilaterally. No accessory muscle use. ABDOMEN/GI: Abdomen soft, non-tender. Fundus: Firm, non-tender at umbilicus. GENITOURINARY: Light to moderate bleeding. EXTREMITIES: No cyanosis or edema, non-tender, without signs of DVT. Medications and IVs: Active Medications Acetaminophen (Tylenol) 650 mg PO Q4H PRN PRN Reason: PAIN SCALE 1 TO 2 Last Admin: 12/16/17 14:48 Dose: 650 mg Al Hydroxide/Mg Hydroxide (Milk Of Magnesia Liq) 30 ml PO Q12H PRN PRN Reason: Mild Constipation Benzocaine (Americaine 20% Top [place]) 1 spray TOPICAL Q4H PRN PRN Reason: For Perineum Discomfort Last Admin: 12/15/17 21:55 Dose: 1 spray Bisacodyl (Dulcolax Supp) 10 mg RECTAL DAILY PRN PRN Reason: SEVERE CONSITIPATION Citric Acid/Sodium Citrate (Sodium Citrate/Citric Acid Liq) 30 ml PO [facility] Stop: 12/19/17 13:44 Fentanyl Citrate (Fentanyl Inj) 50 mcg IV.PUSH Q1H PRN PRN Reason: Pain Scale 3 - 5 Fentanyl Citrate (Fentanyl Inj) 100 mcg IV.PUSH Q1H PRN PRN Reason: PAIN SCALE 6 TO 10 Last Admin: 12/15/17 14:07 Dose: 100 mcg Lactated Ringer's (Lr 1000 Ml Inj) 1,000 mls @ 125 mls/hr IV.CONT .Q8H [facility] Last Admin: 12/15/17 13:48 Dose: 125 mls/hr Lactated Ringer's (Lr 1000 Ml Inj) 1,000 mls @ 3,000 mls/hr IV.SIG UNSCH PRN PRN Reason: compromise or epidural Last Admin: 12/15/17 15:10 Dose: 3,000 mls/hr Sodium Chloride (Ns Inj) 500 mls @ 1,000 mls/hr IV.SIG UNSCH PRN PRN Reason: SEE LABEL COMMENTS Sodium Chloride (Ns Inj) 1,000 mls @ 100 mls/hr IV.CONT .Q10H PRN PRN Reason: SEE LABEL COMMENTS Fentanyl/Bupivacaine/Sodium Chlor (Fentanyl 2 Mcg-Bupiv 0.125% Epi) 150 mls @ 11 mls/hr EPIDURAL PRN PRN PRN Reason: for Labor Pain Last Admin: 12/15/17 15:31 Dose: 11 mls/hr Ibuprofen (Motrin) 800 mg PO Q8H PRN PRN Reason: For cramping Last Admin: 12/16/17 14:48 Dose: 800 mg Lactulose (Lactulose Liq) 30 ml PO DAILY PRN PRN Reason: SEVERE CONSITIPATION Lidocaine HCl (Xylocaine 1% Inj) 0.1 ml I-DERMAL PRN PRN PRN Reason: For IV start Stop: 12/18/17 13:31 Lidocaine HCl (Xylocaine 1% Inj) 10 ml INFILTRATN PRN PRN PRN Reason: For episiotomy repair Stop: 12/17/17 13:31 Mineral Oil (Muri-Lube Oil) 10 ml TOPICAL PRN PRN PRN Reason: PRN perineal massage Naloxone HCl (Narcan Inj) 0.1 mg IV.PUSH Q2M PRN PRN Reason: for opiate reversal Naloxone HCl (Narcan Inj) 0.1 mg IV.PUSH Q2M PRN PRN Reason: for opiate reversal Ondansetron HCl (Zofran Inj) 4 mg IV.PUSH Q6H PRN PRN Reason: NAUSEA OR VOMITING Last Admin: 12/15/17 18:24 Dose: 4 mg Ondansetron HCl (Zofran Odt) 4 mg PO Q6H PRN PRN Reason: NAUSEA OR VOMITING Senna/Docusate Sodium (Manda-Colace) 1 tab PO BID WU Last Admin: 12/15/17 21:55 Dose: 1 tab Sennosides (Senokot) 17.2 mg PO Q12H PRN PRN Reason: Moderate Constipation Sodium Chloride (Ns Flush) 2 ml IV.FLUSH BID WU Sodium Chloride (Ns Flush) 2 ml IV.FLUSH PRN PRN PRN Reason: FLUSH AFTER USING IV ACCESS Witch Suad/Glycerin (Tucks Pads) 1 applicatio RECTAL QID PRN PRN Reason: HEMORRHOIDS Last Admin: 12/15/17 21:55 Dose: 1 applicatio Zolpidem Tartrate (Ambien) 5 mg PO HS PRN PRN Reason: SLEEP Assessment and Plan - Diagnosis (1) Code(s): Z34.90 - Encounter for supervision of normal , unspecified, unspecified trimester Status: Acute Plan: , 40 weeks 2 days gestation, day #2 -Continue regular PPM care -Ambulate as tolerated - Pain well controlled on current medications - Does not need rhogam - CBC day #1 WNL - Anticipate d/c when baby is D/C'd, likely today -Follow-up with me in office in 6 weeks -Contraception discussed, patient considering options, will abstain from sexual activity 6 weeks - Plan delivered at [id number] days gestation, without complications. Discharge Planning: Anticipate d/c today pending baby d/c (1) Qualifiers: Weeks of gestation: 40 weeks Qualified Code(s): Z3A.40 - 40 weeks gestation of
[2017-12-17 08:16] VITALS: BP 113/69; PULSE 72
[2017-12-17 08:17] VITALS: RESP 20; TEMP 97.6
== END 2017-12-17 12:50 | disposition home or self-care (01) ==
LOC: HOBED 12:45 → H2E 13:40 → H1EA 21:20
PROVIDERS: ADMIT Obstetrics & Gynecology; ATTEND Obstetrics & Gynecology